=== PATIENT | female | born 1960 | race Caucasian/White ===

== ENCOUNTER 2021-04-10 13:36 | Emergency (ER) | payer OTHER ==
[~2021-04-10] VITALS: Ht 162.6 cm; Wt 59.0 kg
== END 2021-04-10 15:57 | disposition home or self-care (01) ==
LOC: ER 13:36
DX: S51.811A Laceration without foreign body of right forearm, initial encounter (principal); Y04.8XXA Assault by other bodily force, initial encounter
CPT/HCPCS: 12002; 90471; 90714; 99282